=== PATIENT | male | born 1970 | race Caucasian/White ===

== ENCOUNTER 2017-07-01 09:50 | Emergency (ER) | payer MEDICARE, MEDICAID ==
[2017-07-01] MEDS ORDERED: DIPH/PERTUSS(ACELL)/TETANUS VAC/PF 0.5 ML SYR (>=10YO) IM ONE (10:02)
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
[2017-07-01] MEDS ORDERED: IPRATROPIUM/ALBUTEROL 0.5-2.5 MG/3 ML AMPUL NEB ONE (10:25)
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
[2017-07-01] MEDS ORDERED: ACETAMINOPHEN 325 MG TABLET PO ONE (11:37)
[2017-07-01] MEDS ORDERED: ALBUTEROL SULFATE HFA (90 MCG/PUFF) 8 GM MDI (1 MDI/ER DISP) IH PRN (11:51)
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
[2017-07-01 13:54] VITALS: BP 131/66
== END 2017-07-01 13:53 | disposition home or self-care (01) ==
LOC: ER 09:50
DX: S80.812A Abrasion, left lower leg, initial encounter (principal); S99.922A Unspecified injury of left foot, initial encounter; R07.9 Chest pain, unspecified; R07.89 Other chest pain; M25.551 Pain in right hip; J40 Bronchitis, not specified as acute or chronic; F17.200 Nicotine dependence, unspecified, uncomplicated; Y04.2XXA Assault by strike against or bumped into by another person, initial encounter; Z23 Encounter for immunization
CPT/HCPCS: 94640; 99284; 90471; 73502; 71101; 73660; 70450; 90715; A9270 ×2; J7620

== ENCOUNTER 2017-07-01 17:10 | Emergency (ER) | payer MEDICARE, MEDICAID ==
[2017-07-01 17:19] VITALS: BP 132/101
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
[2017-07-01] MEDS ORDERED: GABAPENTIN 300 MG CAPSULE PO ONE (18:23)
[2017-07-01] MEDS ORDERED: IPRATROPIUM/ALBUTEROL 120 PUFF/4 GM MDI IH ONE (18:23)
[2017-07-01] MEDS ORDERED: BACITRACIN OPH OINT 3.5 GM EXT ONE (18:35)
[2017-07-01] MEDS ORDERED: PREDNISONE 20 MG TABLET PO ONE (18:48)
[2017-07-01] MEDS ORDERED: NICOTINE 14 MG/24 HR PATCH.TD24 TD ONE (18:50)
== END 2017-07-01 19:00 | disposition home or self-care (01) ==
LOC: ER 17:10
DX: S99.922A Unspecified injury of left foot, initial encounter (principal); S80.812A Abrasion, left lower leg, initial encounter; J40 Bronchitis, not specified as acute or chronic; R06.02 Shortness of breath; F17.200 Nicotine dependence, unspecified, uncomplicated; Z79.899 Other long term (current) drug therapy; Y09 Assault by unspecified means
CPT/HCPCS: 99284; A9270 ×2; J3490; J7512